=== PATIENT | female | born 1980 | race Two or more races ===

== ENCOUNTER → 2017-02-25 | Outpatient (CLI) | payer BC ==
[~2017-02-25] MED LIST: CETI10TA24 PO; FLUT9.9S NAS
[2017-02-25 15:17] LABS: PATH.CAST-FLAG NOT PRESENT; SPERM-FLAG NOT PRESENT; SRC-FLAG NOT PRESENT; XTAL-FLAG NOT PRESENT; YLC-FLAG NOT PRESENT
== END | disposition home or self-care (01) ==
LOC: STAR 14:10
PROVIDERS: ATTEND Obstetrics & Gynecology
DX: Z01.818 Encounter for other preprocedural examination (principal); N92.0 Excessive and frequent menstruation with regular cycle
CPT/HCPCS: 36415; 81001; 84703; 85025; 87086

== ENCOUNTER 2017-03-12 05:07 | Day surgery (SDC) | payer BC ==
[~2017-03-12] VITALS: Ht 162.6 cm; Wt 94.0 kg
[2017-03-12] MEDS ORDERED: LACTATED RINGERS 1,000 ML IV SCH (06:04)
[2017-03-12 06:07] VITALS: BP 140/84
[2017-03-12] MEDS ORDERED: VASOPRESSIN 20 UNIT/ML, 1ML ONE (06:35)
[2017-03-12] MEDS ORDERED: FENTANYL PF 100 MCG/2ML ONE ×2 (06:51→08:30)
[2017-03-12] MEDS ORDERED: KETAMINE 10 MG/ML, 20ML ONE (06:52)
[2017-03-12] MEDS ORDERED: MEPERIDINE/PF 25MG/0.5ML IVPush PRN (07:30)
[2017-03-12] MEDS ORDERED: LABETALOL 5MG/ML, 20ML IV PRN (07:30)
[2017-03-12] MEDS ORDERED: OXYcodone 5 MG/5 ML ORAL.SOL UDC PO PRN (07:30)
[2017-03-12] MEDS ORDERED: ONDANSETRON 2MG/ML, 2ML IVPush PRN (07:30)
[2017-03-12] MEDS ORDERED: MIDAZOLAM 1 MG/ML, 2ML IV PRN (07:30)
[2017-03-12] MEDS ORDERED: FENTANYL PF 100 MCG/2ML IV PRN (07:30)
[2017-03-12] MEDS ORDERED: PROMETHAZINE 25 MG/ML, 1ML IV PRN (07:30)
[2017-03-12] MEDS ORDERED: hydrALAzine 20 MG/ML, 1ML IV PRN (07:30)
[2017-03-12] MEDS ORDERED: HYDROmorphone 1 MG/ML, 1ML IV PRN (07:30)
[2017-03-12] MEDS ORDERED: ACETAMINOPHEN 325 MG TABLET ONE (08:17)
[2017-03-12] MEDS ORDERED: OXYcodone 5 MG/5 ML ORAL.SOL UDC ONE (08:30)
[2017-03-12] MEDS ORDERED: ACETAMINOPHEN 325 MG TABLET PO PRN (08:30)
[2017-03-12] MEDS ORDERED: PROPOFOL 10 MG/ML, 20ML ONE (11:03)
[2017-03-12] MEDS ORDERED: DEXAMETHASONE 4 MG/ML, 1ML ONE (11:03)
[2017-03-12] MEDS ORDERED: KETOROLAC 30 MG/1 ML ONE (11:03)
[2017-03-12] MEDS ORDERED: METOCLOPRAMIDE 5 MG/ML, 2ML ONE (11:03)
[2017-03-12] MEDS ORDERED: ONDANSETRON 2MG/ML, 2ML ONE (11:03)
== END 2017-03-12 09:50 | disposition home or self-care (01) ==
LOC: OUT 05:07
PROVIDERS: ATTEND Obstetrics & Gynecology
DX: N92.0 Excessive and frequent menstruation with regular cycle (principal); J45.909 Unspecified asthma, uncomplicated; E66.9 Obesity, unspecified; Z68.35 Body mass index [BMI] 35.0-35.9, adult; D64.9 Anemia, unspecified; Z98.890 Other specified postprocedural states; Z82.49 Family history of ischemic heart disease and other diseases of the circulatory system; Z72.89 Other problems related to lifestyle
CPT/HCPCS: 58563; J1100; J1885; J2405; J2704; J2765; J3010; J7120

== ENCOUNTER 2018-04-16 11:32 | Emergency (ER) | payer BC, OTHER ==
[~2018-04-16] VITALS: Ht 162.6 cm; Wt 95.8 kg
[2018-04-16] MEDS ORDERED: HYDROcodone/APAP 5/325 TABLET ONE (12:12)
[2018-04-16] MEDS ORDERED: HYDROcodone/APAP 5/325 TABLET PO ONE (12:30)
[2018-04-16 14:49] VITALS: BP 119/71
== END 2018-04-16 14:52 | disposition home or self-care (01) ==
LOC: ED 12:08
DX: S02.40CA Maxillary fracture, right side, initial encounter for closed fracture (principal); S00.11XA Contusion of right eyelid and periocular area, initial encounter; S00.83XA Contusion of other part of head, initial encounter; W21.07XA Struck by softball, initial encounter; Y93.64 Activity, baseball; Y92.320 Baseball field as the place of occurrence of the external cause; Y99.8 Other external cause status
CPT/HCPCS: 70450; 70486; 99284